=== PATIENT | female | born 1970 | race Caucasian/White ===

== ENCOUNTER 2017-01-04 09:14 | Emergency (ER) | payer OTHER ==
[~2017-01-04] VITALS: Ht 162.6 cm; Wt 72.6 kg
--- NOTE | 2017-01-04 09:28 | ED GENERAL ADULT ---
History of Present Illness General Chief Complaint: Chest Pain Stated Complaint: CP Source: patient Exam Limitations: no limitations Vital Signs & Intake/Output Vital Signs & Intake/Output Vital Signs Date Time Temp Pulse Resp B/P Pulse O2 O2 Flow FiO2 Ox Delivery Rate 01/04 1420 98.5 83 20 113/55 98 Room Air 01/04 1319 98.3 82 20 117/59 97 Room Air 01/04 1150 97.5 79 20 117/60 98 Room Air 01/04 0923 99.1 92 18 157/84 100 Room Air Allergies Coded Allergies: No Known Allergies (01/04/17) Reconcile Medications Escitalopram Oxalate 10 MG TABLET 1 TAB PO QPM MENTAL HEALTH (Reported) Ethinyl Estradiol/Drospirenone (Gianvi 3 MG-0.02 MG Tablet) 0.02 MG-3 MG (24) TABLET 1 TAB PO QPM BC (Reported) Mirabegron (Myrbetriq) 25 MG TAB.ER.24H 1 TAB PO DAILY BLADDER (Reported) Triage Note: TRIAGE: PT TO ER C/C PAIN TO CHEST AND UNDER L BREAST, HOT/SWEATY, DIARRHEA AND HEADACHE. ONSET OF S/S YESTERDAY. REPORTS DIARRHEA X 4 SINCE ONSET. ONSET OF HEADACHE TODAY. -N/V. REPORTS +SOB WHEN ASKED. HAD EKG DONE IN [facility] PRIOR TO TRIAGE. NSR 90. Triage Nurses Notes Reviewed? yes Onset: Abrupt Duration: day(s): Timing: recent history : No Patient currently breastfeeds: No HPI: 01/04/17 9:30 AM This is a 46-year-old female presents to the emergency department complaining of chest pain, followed by diarrhea. This is been ongoing over the past week. The onset of the symptoms were abrupt, the duration has been intermittently occurring over the past week. She has past medical history of anxiety. She says that the pain is in the left chest and it's worse with palpation and taking a deep breath. Her last menstrual period was 12/15/2016. She does not smoke, occasionally drinks. She has a history of anxiety and urinary incontinence. She status post bladder sling by Dr. Arriola. She does take Lexapro and Xanax but has not had significant relief. She is also on oral contraceptives. On physical exam she does have left-sided chest wall pain and tenderness. Abdomen is soft and nontender. Past History Travel History Traveled to [place] past 21 day No Medical History Any Pertinent Medical History? see below for history Neurological: NONE EENT: NONE Cardiovascular: NONE Respiratory: NONE Gastrointestinal: NONE Hepatic: NONE Renal: NONE Musculoskeletal: NONE Psychiatric: anxiety, depression Endocrine: NONE Blood Disorders: NONE Cancer(s): NONE NURSE ASSISTANT/Reproductive: NONE Surgical History Surgical History: non-contributory Psychosocial History What is your primary language Syrian Tobacco Use: Quit >30 days ago ETOH Use: occasional use Illicit Drug Use: denies illicit drug use Family History Hx Contributory? No Review of Systems Review of Systems Constitutional: Denies: fever. EENTM: Denies: visual changes. Respiratory: Reports: short of breath. Cardiovascular: Reports: chest pain. GI: Denies: abdominal pain. Genitourinary: Reports: no symptoms. Musculoskeletal: Reports: no symptoms. Skin: Denies: rash. Neurological/Psychological: Reports: anxiety. Hematologic/Endocrine: Reports: no symptoms. Immunologic/Allergic: Reports: no symptoms. Physical Exam Physical Exam General Appearance: well developed/nourished, alert, awake, anxious, mild distress Head: atraumatic, normal appearance Eyes: Bilateral: normal appearance, PERRL, EOMI. Ears, Nose, Throat: normal pharynx, normal ENT inspection Neck: normal inspection, supple, full range of motion Respiratory: normal breath sounds, no respiratory distress, left chest wall pain and tenderness, subcostal. Abdomen is soft and nontender. No left shoulder pain or tenderness. Cardiovascular: regular rate/rhythm Peripheral Pulses: 4+ radial (R), 4+ radial (L) Gastrointestinal: soft, non-tender Back: normal range of motion Extremities: normal inspection, normal range of motion, no edema Neurologic/Psych: no motor/sensory deficits, awake, alert, oriented x 3 Skin: intact, normal color, warm/dry Core Measures ACS in differential dx? No CVA/TIA Diagnosis: No Severe Sepsis Present: No Septic Shock Present: No Progress Differential Diagnoses I considered the following diagnoses in my evaluation of the patient: [Acute coronary syndrome, pulmonary embolism, viral syndrome, costochondritis, anxiety] Plan of Care: Orders Procedure Date/time Status EKG 01/04 1201 Active Add-on Test (ER Only) 01/04 1040 Active HUMAN BETA HCG SCREEN 01/04 0945 Complete TROPONIN LEVEL 01/04 0940 Complete D-DIMER 01/05 940 Complete COMPREHENSIVE METABOLIC PANEL 01/05 940 Complete CBC WITHOUT DIFFERENTIAL 01/05 940 Complete EKG 01/04 915 Active Laboratory Tests 01/04/17 0949: Total Beta HCG Cancelled 01/04/17 0945: Anion Gap 8, Estimated GFR > 60, BUN/Creatinine Ratio 13.3, Glucose 102 H, Calcium 9.8, Total Bilirubin 0.4, AST 16, ALT 32, Alkaline Phosphatase 52, Troponin I < 0.01, Total Protein 6.8, Albumin 3.9, Globulin 2.9, Albumin/ Globulin Ratio 1.3, Total Beta HCG NEGATIVE, D-Dimer < 200, CBC w Diff NO MAN DIFF REQ, RBC 4.57, MCV 84.3, MCH 28.9, RDW 12.2, MPV 7.3 L, Gran % 73.2, Lymphocytes % 20.8, Monocytes % 4.0, Eosinophils % 1.7, Basophils % 0.3, Absolute Granulocytes 4.5, Absolute Lymphocytes 1.3, Absolute Monocytes 0.2, Absolute Eosinophils 0.1, Absolute Basophils 0, PUBS MCHC 34.3 Initial ED EKG: nonspecific ST T wave chg Departure Departure Disposition: HOME OR SELF CARE Condition: Stable Clinical Impression Primary Impression: Chest wall pain Secondary Impressions: Anxiety, Diarrhea Referrals: MALLORIE JEAN,CECILIA Ascencio (PCP/Family) Departure Forms: Customer Survey General Discharge Information Comments The patient was reevaluated and had no complaints. Abdomen was again soft and nontender, she does have left subcostal chest wall tenderness. Chest x-ray was negative. I considered pulmonary embolism. No tachycardia. D-dimer was negative. I considered acute coronary syndrome, her pain is been intermittent for over a week, is pleuritic in nature. Her repeat EKG is unchanged. Troponin is nondetectable. Critical Care Note Critical Care Note Critical Care Time: non-applicable
[2017-01-04] MEDS ORDERED: ESCITALOPRAM OX10 MG PO (09:38)
[2017-01-04] MEDS ORDERED: GIANVI 3 MG-0.1 EACH PO (09:39)
[2017-01-04] MEDS ORDERED: MYRBETRIQ25 M1 PO (09:39)
[2017-01-04 09:53] LABS: ABSOLUTE BASOPHIL COUNT 0 /CUMM (0.0-0.2); ABSOLUTE EOSINOPHIL COUNT 0.1 /CUMM (0.0-0.7); ABSOLUTE GRANULOCYTE CT 4.5 /CUMM (1.4-6.5); ABSOLUTE LYMPH COUNT 1.3 /CUMM (1.2-3.4); ABSOLUTE MONOCYTE COUNT 0.2 /CUMM (0.10-0.60); BASOPHIL % 0.3 % (0.0-2.0); EOSINOPHIL % 1.7 % (0-5); GRANULOCYTE % 73.2 % (42.2-75.2); HEMATOCRIT 38.5 % (37-47); MEAN CORPUSCULAR HGB 28.9 PG (27.0-31.0); MEAN CORPUSCULAR HGB CONC 34.3 G/DL (33.0-37.0); MEAN CORPUSCULAR VOLUME 84.3 FL (81.0-99.0); MEAN PLATELET VOLUME 7.3 FL (7.4-10.4); PLATELET COUNT 286 /CUMM (130-400); RBC DISTRIBUTION WIDTH 12.2 % (11.5-14.5); RED BLOOD CELL CT 4.57 /CUMM (4.20-5.40); WHITE BLOOD CELL COUNT 6.1 /CUMM (4.8-10.8)
--- NOTE | 2017-01-04 13:07 | RADIOLOGY REPORT ---
EXAMINATION: XR PORTABLE CHEST CLINICAL INFORMATION: Shortness of breath COMPARISON: None TECHNIQUE: Portable AP view of the chest was obtained. FINDINGS: No significant abnormality is noted involving the heart, lungs, mediastinum, bony thorax or soft tissues. IMPRESSION: Unremarkable examination.
[2017-01-04 14:20] VITALS: BP 113/55
== END 2017-01-04 14:29 ==
LOC: ERH 09:14
PROVIDERS: Emergency Medicine
DX: R07.89 Other chest pain (principal); F41.9 Anxiety disorder, unspecified; R19.7 Diarrhea, unspecified
CPT/HCPCS: 93005; 93010; 96360; 96361